=== PATIENT | female | born 1950 | race Caucasian/White ===

== ENCOUNTER → 2018-10-30 | Outpatient (CLI) | payer OTHER ==
[~2018-10-30] VITALS: Ht 162.6 cm; Wt 81.6 kg
[~2018-10-30] MED LIST: IBUPROFEN 200200 M1 PO; MAXZIDE-25 MG1 EACH PO; MUCINEX1200 MG PO; NORVASC10 MG PO; OMEPRAZOLE40 MG PO; RANITIDINE 150150 M1 PO; SYNTHROID112 MC1 PO; VENTOLIN HFA 1818 GM INH; VITAMIN D34000 UNIT PO
--- NOTE | 2018-10-31 12:36 | P ---
[facility] [place] [address] PROCEDURE REPORT Name: MARTÍNEZ RILEY Room #: REG [facility]#: [id number] Admission: 10/30/18 ������������������ Attend Phys: Kenan Banks MD Discharge: ������������������ Date of : 52 Report #: [id number] THIS REPORT FOR: //name// CC: Kenan Canales BRIEF HISTORY: The patient is a 68-year-old woman who reports that in the in [place], she had a polyp removed endoscopically and it sounds like there was carcinoma in situ. She did not require any surgery or further treatment. PREOPERATIVE DIAGNOSIS: High risk screening colonoscopy due to history of malignant polyp. POSTOPERATIVE DIAGNOSES: 1. Multiple colon polyps. 2. Melanosis coli. 3. Small internal hemorrhoids. MEDICATIONS: Deep sedation with propofol per anesthesia. SPECIMENS: 1. Cecal polyp. 2. Polyps x 2, proximal ascending colon. 3. Polyp at 60 cm. 4. Polyp at 40 cm. 5. Polyp at 30 cm. ESTIMATED BLOOD LOSS: 3 mL. PROCEDURE: Colonoscopy to the cecum and terminal ileum with snare polypectomy and biopsy. FINDINGS: Prior to propofol sedation, the procedure of colonoscopy was discussed with the patient as well as potential risks and its complications. She indicates she understands and desires to proceed. With the patient in the left lateral decubitus position, digital examination was completed, which revealed no abnormalities. Subsequently, the Olympus video colonoscope was introduced in the rectum and advanced under direct vision to the cecum. Done with minimal difficulty. The cecum was identified by the ileocecal valve and the appendiceal orifice. I was able to visualize the distal segment of the terminal ileum, which was inspected and noted to be unremarkable. At that point, scope was slowly withdrawn and careful circumferential views obtained including retroflexing the scope in the ascending colon. As we withdrew the scope, the prep was noted to be excellent. Mucosa was within [facility] [address] [place] [address] PROCEDURE REPORT Name: ROSEMARYMARTÍNEZ D Room #: [facility]#: [id number] Admission: 10/30/18 ������������������ Attend Phys: Kenan Banks MD Discharge: ������������������ Date of : 52 Report #: [id number] normal limits, normal vascular pattern and normal light reflex. As we withdrew the scope, a diminutive polyp was seen and removed with biopsy forceps from the cecum. It was also noted that she had a pattern of mild melanosis coli throughout the entire colon. As the scope was further withdrawn, two flat polyps were seen and removed with a cold polypectomy snare in the proximal ascending colon. They were flat polyps, the larger one was about 8 mm in length and 4 mm in width. The smaller one was about 6 x 3 mm. Both were completely removed by cold snare polypectomy. The scope was further withdrawn and no additional abnormalities were noted until the descending colon was reached and at 60 cm a diminutive polyp was seen and removed with biopsy forceps. Another diminutive polyp was removed with forceps at 40 cm and another at 30 cm. The scope was withdrawn in the rectum. Upon retroflexion, very small hemorrhoids were seen. The scope was withdrawn. The patient tolerated the procedure well. CONDITION OF THE PATIENT UPON DISCHARGE: Following procedure, the patient drowsy, arousable and conversant. She will be discharged home when fully ambulatory. INSTRUCTIONS TO THE PATIENT AND FAMILY AT THE TIME OF DISCHARGE: The patient with history of malignant polyp and high risk screening today reveals 6 polyps. We will follow up on the path report. All appear benign. However, in view of her history we will have her return in 3 years for followup colonoscopy. Last colonoscopy was approximately 5 years ago. Withdrawal time from the cecum was 19 minutes 16 seconds. ��������������������������������������������� <ELECTRONICALLY SIGNED> ���������������������������������������� By: Kenan Banks MD ��������������������������������������������� 10/31/18 1236 [id number] 194 Kenan Banks MD /nt
--- NOTE | 2018-10-31 12:36 | P ---
[facility] [place] [address] PROCEDURE REPORT Name: MARTÍNEZ RILEY Room #: REG [facility]#: [id number] Admission: 10/30/18 ������������������ Attend Phys: Kenan Banks MD Discharge: ������������������ Date of : 52 Report #: [id number] THIS REPORT FOR: //name// CC: Kenan Canales DO DATE OF SERVICE: 10/30/2018 BRIEF HISTORY: The patient is a 68-year-old woman with history of reflux symptoms who had been having more symptoms, especially night with nighttime regurgitation. She also has intermittent solid food dysphagia and has had dilation in the past. PREOPERATIVE DIAGNOSIS: Worsening reflux symptoms on therapy. POSTOPERATIVE DIAGNOSES: 1. A 2-3 cm sliding type hiatus hernia. 2. Moderate diffuse gastritis. 3. Solid food dysphagia. MEDICATIONS: Deep sedation with propofol per anesthesia. SPECIMEN: Biopsies of gastritis. ESTIMATED BLOOD LOSS: 3 mL. PROCEDURE: EGD with biopsy and Joshi dilation. FINDINGS: Prior to propofol sedation, the procedure of upper endoscopy and dilation was discussed with the patient as well as potential risks and its complications. She indicates she understands and desires to proceed. DESCRIPTION OF PROCEDURE: With the patient in left lateral decubitus position, the Olympus videoendoscope was inserted in the cervical esophagus under direct vision without difficulty. Examination of this organ through its entire length revealed normal esophageal mucosa down the squamocolumnar junction. The squamocolumnar junction was inspected and noted to be unremarkable. There is no evidence of ulcers, erosions or esophagitis. There is no evidence of Chawla mucosa. A 2-3 cm sliding type hiatus hernia was seen. Mucosa and hernia was unremarkable. Scope was advanced in the stomach, which was examined on end view as well as retroflexed views. There was pattern of moderate antral gastritis without ulcers or erosions. Biopsies were obtained for H. pylori. Upon retroflexion, the hiatus hernia was seen. No other abnormalities were identified. No mass lesions were seen. The pylorus, duodenal bulb, and postbulbar sweep were all inspected and noted to be unremarkable. At that [facility] [address] [place] [address] PROCEDURE REPORT Name: MARTÍNEZ RILEY Room #: REG [facility]#: [id number] Admission: 10/30/18 ������������������ Attend Phys: Kenan Banks MD Discharge: ������������������ Date of : 52 Report #: [id number] point, scope was slowly withdrawn and careful circumferential views confirmed the above findings. The patient tolerated the procedure well. Following endoscopy, she was dilated with passage of 50-[place] Joshi dilator without resistance. CONDITION OF THE PATIENT UPON DISCHARGE: Following procedure, the patient drowsy. She was prepared for colonoscopy. INSTRUCTIONS TO THE PATIENT AND FAMILY AT THE TIME OF DISCHARGE: We will have her change her omeprazole to pantoprazole 40 mg twice daily half hour before food. She also may use ranitidine 300 mg at bedtime. We will have her return to see me in followup in the office about 2-3 months. If nighttime symptoms persist, surgical intervention may be consideration. ��������������������������������������������� <ELECTRONICALLY SIGNED> ���������������������������������������� By: Kenan Banks MD ��������������������������������������������� 10/31/18 1236 0831 1923 Kenan Banks MD /nt
--- NOTE | 2018-11-06 15:23 | PATH ---
[facility] [place] [address] PATHOLOGY RPT PROCEDURE Name: ASHLYN RILEYJODIE Merrill Room #: REG [facility].#: [id number] ������������������ Admission: 10/30/18 ������������������ Date of : 52 Discharge: Report #: [id number] Path Case #: [id number] [facility] Accession Number: [id number] . 01 Material submitted: . PART A: BX GASTRITIS R/O H. PYLORI PART B: POLYP AT CECUM PART C: POLYP X2 AT PROXIMAL ASCENDING COLON PART D: POLYP AT 60CM PART E: POLYP AT 40CM PART F: POLYP AT 30CM . 01 Clinical history: . GERD, gastritis, colon polyps, melanosis coli, history of malignant colon polyp. . 02 Diagnosis: A. Gastric mucosa, gastritis, rule out H. pylori, endoscopic biopsy: - Mild chronic gastritis with features of reactive gastropathy. - Negative for intestinal metaplasia or atrophy. - Negative for Helicobacter pylori (properly controlled immunohistochemical stain performed). . B. Polyp, at cecum, endoscopic biopsy: - Tubular adenoma. - Negative for high-grade dysplasia. . C. Polyp x 2 at proximal ascending colon, endoscopic biopsy: - Multiple fragments showing a tubular adenoma. - Negative for high-grade dysplasia. . D. Polyp, at 60 cm, endoscopic biopsy: - Tubular adenoma admixed with hyperplastic changes. - Negative of high-grade dysplasia. . E. Polyp, at 40 cm, endoscopic biopsy: - Tubular adenoma. - Negative for high-grade dysplasia. . F. Polyp, at 30 cm, endoscopic biopsy: - Tubular adenoma. - Negative for high-grade dysplasia. (IUV:pit 11/02/2018) QTP/11/02/2018 . 02 Electronically signed: . Destiny Bustamante MD, Pathologist [address] [address] PATHOLOGY RPT PROCEDURE Name: PATSY RILEY Room #: REG [facility]#: [id number] ������������������ Admission: 10/30/18 ������������������ Date of : 52 Discharge: Report #: [id number] Path Case #: [id number] I- [id number] . 01 Gross description: . A. Received in formalin labeled "Patsy Riley, biopsy gastritis rule out H. pylori" is a 0.6 x 0.6 x 0.2 cm aggregate of chung-brown mucosa. The specimen is submitted in cassette A1. . B. Received in formalin labeled "Patsy Riley, polyp at cecum" are two fragments of chung-brown mucosa measuring in aggregate 0.5 x 0.2 x 0.1 cm. The specimen is submitted in cassette B1. . C. Received in formalin labeled "Patsy Riley, polyp x2 at proximal ascending colon" is a 1.8 x 1.0 x 0.3 cm aggregate of chung-brown mucosa. The specimen is submitted in cassette C1. . D. Received in formalin labeled "Patsy Riley, polyp at 60 cm" is a 0.4 x 0.4 x 0.2 cm fragment of chung-brown mucosa. The specimen is submitted in cassette D1. . E. Received in formalin labeled "Patsy Riley, polyp at 40 cm" is a 0.7 x 0.3 x 0.2 cm fragment of chung-brown mucosa. The specimen is submitted in cassette E1. . F. Received in formalin labeled "Patsy Riley, polyp at 30 cm" are two fragments of chung-brown mucosa measuring in aggregate 0.5 x 0.4 x 0.2 cm. The specimen is submitted in cassette F1. ([facility]; 11/01/2018) SYC/SYC . 02 Pathologist provided ICD-10: K29.50, D12.0, D12.2, D12.6 . 02 CPT . 936759, 321098, 251560, 910808, 514447, [id number], [id number] Specimen Comment: Report sent to / DR BLACKBURN Performed at: [address], [place], [place] [id number] MD Lars Fried MD Phone: [phone] Performed at: [address] [id number] MD Destiny Bustamante MD Phone: [phone]
== END | disposition home or self-care (01) ==
LOC: GI 06:35
DX: Z12.11 Encounter for screening for malignant neoplasm of colon (principal); K29.50 Unspecified chronic gastritis without bleeding; D12.0 Benign neoplasm of cecum; D12.2 Benign neoplasm of ascending colon; D12.4 Benign neoplasm of descending colon; D12.5 Benign neoplasm of sigmoid colon; Z86.010 Personal history of colon polyps; K63.89 Other specified diseases of intestine; K64.9 Unspecified hemorrhoids; K21.9 Gastro-esophageal reflux disease without esophagitis; K44.9 Diaphragmatic hernia without obstruction or gangrene; Z68.30 Body mass index [BMI] 30.0-30.9, adult; I10 Essential (primary) hypertension; D64.9 Anemia, unspecified; Z98.890 Other specified postprocedural states
CPT/HCPCS: 62110; 62900